=== PATIENT | female | born 1960 | race Caucasian/White ===

== ENCOUNTER 2017-06-24 16:01 | Emergency (ER) | payer OTHER ==
[~2017-06-24] VITALS: Ht 165.1 cm; Wt 86.2 kg
[2017-06-24] MEDS ORDERED: VENTOLIN HFA18 GM INH (16:16)
--- NOTE | 2017-06-25 14:30 | EKG ---
[facility] [address] [facility] [place], [place] [address] Signed Sinus tachycardia Septal infarct , age undetermined Possible Inferior infarct , age undetermined Abnormal ECG No previous ECGs available Confirmed by BRIANDA SANDERS MD ([id number]) on 06/25/2017 2:30:09 PM Electronically Signed By: BRIANDA SANDERS MD 06/25/17 1430 PATIENT NAME: FILIPPO ORTIZRina Electrocardiogram DATE OF : 62 PHYSICIAN: BRIANDA SANDERS MD REPORT #: [id number] REPORT IS CONFIDENTIAL AND NOT TO BE RELEASED WITHOUT AUTHORIZATION
== END 2017-06-24 19:02 | disposition home or self-care (01) ==
LOC: ED 16:01
DX: R06.02 Shortness of breath (principal); R07.9 Chest pain, unspecified; Z88.5 Allergy status to narcotic agent
CPT/HCPCS: 71045; 71260; 80053; 84484; 85025; 85379; 87502; 93005; 93010; 99284; Q9967

== ENCOUNTER 2020-11-29 05:50 | Day surgery (SDC) | payer OTHER ==
--- NOTE | 2020-11-22 11:41 | NUR ---
Patient is having a right total knee replacement on 11/29. She has a walker and will bring it with her. She lives in a RV. There are 4 steps in to the RV with rails and 2 steps to get to the bedroom. There is a walk-in shower with a shower chair and a hand-held shower head. There is no riser on the toilet but the seat is higher. She lives with her . For the first couple of days she will be staying with a friend who has a single level house. There is one step to go inside. She does have transportation to her PT appts. She will call and make her first appt.
[~2020-11-29] VITALS: Ht 165.1 cm; Wt 91.8 kg
[~2020-11-29 05:50] MED LIST: BIOTIN10 MG PO; CALCIUM500 M1 PO; FISH OIL 1,2001 EAC1 PO; MELOXICAM15 MG PO; MULTI-VITAMIN1 EACH PO; OMEPRAZOLE20 MG; PEPCID20 MG PO; PROBIOTIC1 EAC1 PO; PULMICORT0.5 MG/2 M INH; VENTOLIN HFA18 GM INH; VITAMIN D32000 UNI1 PO; XANAX0.25 MG
[2020-11-29] MEDS ORDERED: XARELTO10 MG PO (08:24)
[2020-11-29] MEDS ORDERED: ASPIRIN EC325 MG PO (08:24)
[2020-11-29] MEDS ORDERED: CELECOXIB200 MG PO (08:24)
[2020-11-29] MEDS ORDERED: OXYCODONE HCL5 MG PO (08:25)
[2020-11-29] MEDS ORDERED: SENNA LAX8.6 MG PO (08:25)
[2020-11-29] MEDS ORDERED: GABAPENTIN600 MG PO (08:25)
--- NOTE | 2020-11-29 09:12 | NUR ---
11/29/20 0912 Mireya Lee 0830 PT ARRIVED IN PACU SLEEPY WITH NO C/O'S. ON QUE SET AT 4ML/HR. 0845 CRYO CUFF PLACED ON R KNEE. 0847 TORADOL 30MG GIVEN IVP PER ORDERS. 0910 TO DS. REPORT GIVEN TO RN. SPOUSE AT BEDSIDE.
--- NOTE | 2020-11-29 09:12 | NUR ---
PT IS BACK TO FROM PACU. IS AT THE BEDSIDE. SHE IS REPORTING FEELLING HER HAMSTRING BEING TIGHT ON THE RIGHT SIDE. WATER ON BEDSIDE TABLE. CALL LIGHT WITHIN REACH. SHE WOULD LIKE APPLE SAUCE.
--- NOTE | 2020-11-29 10:18 | NUR ---
PT REPORTS AFTER HER FIRST DOSE OF OXYCODONE HER PAIN CAME DOWN FROM A 9 TO A 7, SECOND DOSE GIVEN. SHE IS TOLERATING APPLE SAUCE, WATER, AND COFFEE. IS AT THE BEDISE. CALL LIGHT WITHIN REACH. NO ADDITIONAL NEEDS AT THIS TIME.
--- NOTE | 2020-11-29 11:46 | NUR ---
LE 1130: PHYSICAL THERAPY IS IN ROOM WORKING WITH PATIENT.
--- NOTE | 2020-11-29 11:56 | NUR ---
LE 1145: PT IS UP TO BATHROOM WITH ASSISTANCE FROM PHYSICAL THERAPY. SHE IS ABLE TO VOID QUANTITY SUFFICIENT.
--- NOTE | 2020-11-29 12:02 | NUR ---
VERBAL OK FROM DR. HANCOCK TO DC PATIENT AND SEND HER HOME.
--- NOTE | 2020-11-29 13:24 | NUR ---
LE 1220: PT IS GIVEN VERBAL DC INSTRUCTIONS WITH PRESENT. THEY BOTH VERBALIZE UNDERSTANDING. QUESTIONS ARE ASKED AND ANSWERED. THE PT IS TAKEN TO VEHICLE VIA WC, SHE IS ABLE TO TRANSFER HERSELF FROM WC TO VEHICLE.
--- NOTE | 2020-12-01 07:28 | OR ---
[facility] [address] [place], [place] [address] Signed DATE OF OPERATION: 11/29/2020 SURGEON: Lorraine Rey MD PREOPERATIVE DIAGNOSIS: Severe degenerative joint disease of right knee. POSTOPERATIVE DIAGNOSIS: Severe degenerative joint disease of right knee. PROCEDURE PERFORMED: Right total knee arthroplasty with Abhishek. MANAGER TRAVEL: Tika Peña PA-C. Tika was present and critical for all portions of procedure. ANESTHESIA: Spinal. BLOOD LOSS: 175 mL. IMPLANTS: Ashley Triathlon size 2, 9 mm polyethylene and a 32 mm patella. BRIEF HISTORY: Filippo is a 60-year-old female with progressive worsening of her osteoarthritis, both medial compartment and patellofemoral compartment. Risks and benefits of operative treatment were discussed with her and she elected to proceed. DESCRIPTION OF PROCEDURE: Once consent was obtained, she was taken to the operating room. After adequate anesthesia, she was placed on operating room table, all downside pressure points were well padded and a hip bump was placed. The leg was then prepped and draped in a standard sterile fashion. No tourniquet was placed. The knee was approached through a standard anterior midline incision. This was carried through skin and subcutaneous tissue, the mid vastus approach was undertaken. The MCL was elevated with a sleeve around the posteromedial corner. The infrapatellar fat pad was excised. The menisci were both absent. The ACL was transected. The checkpoints were placed in the medial Electronically Signed By: LORRAINE REY MD 12/01/20 0728 PATIENT NAME: FILIPPO ORTIZ OPERATIVE REPORT DATE OF : 62 REPORT #: [id number] PHYSICIAN: LORRAINE REY MD PCP: SHAGGY TALAVERA MD REPORT IS CONFIDENTIAL AND NOT TO BE RELEASED WITHOUT AUTHORIZATION [facility] [address] [place], [place] [address] Signed femoral condyle and proximal tibia. The computer rays were placed in the medial femoral condyle and tibia through percutaneous incisions in the tibia. The leg was then registered with the computer followed by the fine anatomic points of the knee. The varus valgus laxity was then assessed and the plan was changed just slightly with one degree of external rotation of the femur. The robot was then brought in and the four straight cuts were made with care taken to protect the patellar tendon and MCL. The 2 angle cuts were then made and all extra bone was removed as were any osteophytes. The posterior osteophytes removed off the femur, although they were minor. The trials were then positioned, the knee was taken from 0 to about 135 degrees of flexion. She had excellent stability throughout. The patella was cut sized and drilled for a 32 mm patella. The femoral drill holes were made and the tibia was finished using the keel punch. Her bone was quite good, so we elected to go with a non-cemented prosthesis. The prosthesis was selected and the tibia was impacted into position first followed by the polyethylene. The femur was then impacted into position and the knee was extended and nicely loaded. The patella was clamped into position. The knee was taken through range of motion and the patella tracked a little bit laterally, so I elected to go ahead with lateral release, which centered the patella quite nicely. The knee was pulse lavaged with 1.5 L of normal saline followed by an Aricept soak and another 1.5 L of normal saline under pulse lavage. The On-Q pain pump was placed percutaneously into the adductor canal from the suprapatellar pouch. The periarticular soft tissues were injected with 100 mL ropivacaine and Toradol mixture. The arthrotomy was then closed using #2 Stratafix, the subcutaneous tissue with #0 Stratafix, and skin with 3-0 Stratafix. Steri-Strips were applied. The wound was dressed with Acticoat 7 dressing, ABDs and Johnny wrap. She has tolerated the procedure well. All sponge, needle, and instrument counts were correct. Lorraine Rey MD BA/MODL /[id number] Copies: ~ Electronically Signed By: LORRAINE REY MD 12/01/20 0728 PATIENT NAME: FILIPPO ORTIZ OPERATIVE REPORT DATE OF : 62 REPORT #: [id number] PHYSICIAN: LORRAINE REY MD PCP: SHAGGY TALAVERA MD REPORT IS CONFIDENTIAL AND NOT TO BE RELEASED WITHOUT AUTHORIZATION
== END 2020-11-29 12:25 | disposition home or self-care (01) ==
LOC: DS 05:50
PROVIDERS: ATTEND Specialist
PROC: 8E0YXBZ Computer Assisted Procedure of Lower Extremity (ICD-10-PCS; 2020-11-29)
PROC: 0SRC0JA Replacement of Right Knee Joint with Synthetic Substitute, Uncemented, Open Approach (ICD-10-PCS; principal; 2020-11-29 06:45)
DX: M17.11 Unilateral primary osteoarthritis, right knee (principal); G89.18 Other acute postprocedural pain; K21.9 Gastro-esophageal reflux disease without esophagitis; Z88.4 Allergy status to anesthetic agent; Z91.02 Food additives allergy status; Z88.5 Allergy status to narcotic agent; Z91.018 Allergy to other foods
CPT/HCPCS: 01402; 64447; 64450; 76942; 97110; 97161; C1713; C1776; J0690; J1100; J1885; J2001; J2704; J7040; J7121

== ENCOUNTER 2021-12-22 15:58 | Emergency (ER) | payer OTHER ==
[~2021-12-22] VITALS: Ht 165.1 cm; Wt 96.3 kg
[~2021-12-22 15:58] MED LIST changes: +ASPIRIN EC325 MG PO; +CELECOXIB200 MG PO; +GABAPENTIN600 MG PO; +OXYCODONE HCL5 MG PO; +SENNA LAX8.6 MG PO; +XARELTO10 MG PO
[2021-12-22] MEDS ORDERED: CYCLOBENZAPRINE10 MG PO (20:48)
[2021-12-22] MEDS ORDERED: BENZONATATE100 MG PO (20:48)
== END 2021-12-22 21:28 | disposition home or self-care (01) ==
LOC: ED 15:58
DX: J40 Bronchitis, not specified as acute or chronic (principal); J02.9 Acute pharyngitis, unspecified; Z20.822 Contact with and (suspected) exposure to COVID-19; Z88.5 Allergy status to narcotic agent; Z88.8 Allergy status to other drugs, medicaments and biological substances; Z79.899 Other long term (current) drug therapy; Z79.82 Long term (current) use of aspirin
CPT/HCPCS: 36415; 71045; 80053; 85025; 87502; 87880; 96374; 99283-25; C9803; J1885; J7030; U0003